=== PATIENT | female | born 1960 | race Caucasian/White ===

== ENCOUNTER → 2018-12-09 | Outpatient (CLI) | payer OTHER ==
[2015-12-14 09:32] VITALS: BMI 39.2
[~2018-12-09] MED LIST: ALBU8.5H IH; ARMTHY90PT PO; CEPH-13 PO; CEPH250C37 PO; CYCL10TA29 PO; DICL100G39 TP; FAMO20TA28 PO; HYDR-385 PO; IBUP-1671 PO; LEVO-85 PO; MELO-207 PO; MOMR ENA; PHEN200T32 PO; SUMA25TA26 PO
--- NOTE | 2018-12-09 16:08 | RADIOLOGY IMAGING REPORT ---
[place] [facility] [place] Christine Bennett : 1960 MR: [id number] V: [id number] EXAM DATE: ORDERING PHYSICIAN: JOSE BACON [place]CHN[place] [facility] [place] [place] : 1960 Visit/Account:[id number] Date of Sevice: 12/09/2018 CT ABDOMEN PELVIS W/O CON HISTORY: Left flank pain, history of kidney stones TECHNIQUE: Axial images acquired through the abdomen/pelvis. Coronal and sagittal reformatting also performed. No IV contrast administered.Dose Lowering Technique One of the following dose optimization techniques was utilized in the performance of this exam: Autom ated exposure control; adjustment of the mA and/or kV according to the patient's size; or use of an i terative reconstruction technique. Specific details can be referenced in the facility's radiology C T exam operational policy. COMPARISON: December 13, 2015 FINDINGS: Visualized lung bases: Negative. Hepatobiliary: Negative. Spleen: Negative. Adrenals: Negative. Pancreas: Negative. Kidneys ureters and bladder: There is a lobular contour to both kidneys. There is no demonstration o f nephrolithiasis on the current examination. No evidence of hydronephrosis or hydroureter . There are three tiny calcifications within the inferior right pelvis not appreciated on the prior CT. The se likely represent phlebolith although distal right ureteral calculi cannot be totally excluded due to nonopacification of the ureters Genitalia: 7 mm calcification the uterine fundus likely represents a fibroid GI: There is a moderate amount of fecal material in the colon which can be seen with constipation. Vessels/spaces/nodes: Negative. . 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 IMPRESSION: There is no demonstration of nephrolithiasis, hydronephrosis or hydroureter There are three tiny calcination occasions in the inferior right pelvis not appreciated on the prior CT. Likely represent lupus although distal right ureteral calculi cannot be totally excluded on the basis of this examination. Moderate amount of fecal material in the colon which can be seen with constipation Small umbilical hernia containing fat Report Dictated By: Antonella Chew MD at 12/09/2018 3:56 PM Report E-Signed By: Antonella Chew MD at 12/09/2018 4:04 PM WSN:[email or web address]
== END ==
LOC: CT 15:22
DX: K59.00 Constipation, unspecified (principal); K42.0 Umbilical hernia with obstruction, without gangrene
CPT/HCPCS: 74176